=== PATIENT | male | born 1955 | race American Indian/Alaskan Native ===

== ENCOUNTER 2022-08-26 08:31 | Outpatient (CLI) | payer OTHER, SELFPAY ==
--- NOTE | 2022-08-26 08:49 | USCV_ITS ---
Migue Gill Age: 67 Gender: M : 1955 Exam Date: 08/26/2022 09:27 Ordering Phys: Fredo Moran DO Technologist: Felix Cleaning Exam Location: [facility] [place]_ Indication: ao stent survalance HISTORY: Diameter (cm) AP x Transverse x Length Velocity (cm/s) Waveform Prox Aorta: x x Mid Aorta: x x Distal Aorta: x x Right Iliac Prox: x x Left Iliac Prox: x x Stent Prox Landing x x Aneurysmal Sac Max x x Lt Lat Sac Dim Rt Lat Sac Dim Stent Dist Landing x x Right Iliac Stent x x Left Iliac Stent x x Right Renal Art Left Renal Art FINDINGS: unable to see ao clearly or get doppler signals pt was preped CONCLUSIONS Technically difficult study. Could not visualize the aorta appropriately. Recommend CTA to better evaluate the aorta Dr Jenae Barboza MD FAC (Electronically Signed) Final Date: 30 August 2022 22:53 S
== END 2022-08-26 08:32 | disposition home or self-care (01) ==
LOC: RAD 08:37
PROVIDERS: PCP Emergency Medicine Emergency Medical Services; Visit Provider Emergency Medicine Emergency Medical Services
DX: Z95.828 Presence of other vascular implants and grafts (principal); I71.9 Aortic aneurysm of unspecified site, without rupture
CPT/HCPCS: 93978

== ENCOUNTER 2022-09-21 16:15 | Outpatient (CLI) | payer OTHER, SELFPAY ==
--- NOTE | 2022-09-21 16:23 | CT_ITS ---
WS: [id number] CT ANGIOGRAPHY ABDOMEN AORTA, with and without contrast. HISTORY: AAA, SURVEILLANCE TECHNIQUE: Noncontrast CT first performed. CT angiogram is performed during IV injection. Arterial an d delayed imaging. Reformation images reviewed. All CT scans at [facility] use at least one of these dose optimization techniques: automated exposure control; mA and/or kV adjustment per patient size (includes targeted exams where dose is matched to clinical indication); or iterative reconstruct ion. CONTRAST: Omnipaque 350; 100 mL IV. DLP: 1717.58 mGy.cm COMPARISON: No similar studies. Lung bases are clear. Normal size heart. Abdominal aorta: Patient is status post endovascular graft repair. Graft begins just below the SMA wi th RIGHT common iliac artery extensions. There is a very short leg of the graft which does not extend to the LEFT common iliac artery. The graft bifurcates but there is a very short and occluded LEFT il iac extension. The graft does not extend into the LEFT iliac artery. This may be purposely short exte nsion but does not extend into the LEFT common iliac. The RIGHT common iliac artery extension of the graft is widely patent. In the main body of the graft there is a small amount of mural thrombus, curvilinear along the RIGHT graft with a maximum diameter which does not enhance measuring 5.3 mm. Both renal arteries are normal ly opacified. Celiac axis and SMA are normally opacified. KHAI is not identified and may be occluded. Good contrast opacification of the RIGHT common iliac artery. Small caliber and occluded LEFT common iliac artery. No endovascular leak is identified. Liver and gallbladder are negative. Normal size spleen with granulomata. No bile duct dilatation. Nor mal pancreas and adrenal glands. No ascites or adenopathy. Visualized GI tract is negative with mild constipation. Normal appendix. No renal obstruction. No renal mass or cortical thinning. Ventral abdo sajan wall hernia contains fat only. CT/CT angio abdomen [id number] IMPRESSION: 1. Patient is status post endovascular graft repair. 2. No abdominal aortic aneurysm. Small amount of mural thrombus along the RIGH T lateral graft measuring 5.3 mm. Graft remains widely patent. 3. RIGHT common iliac artery graft is patent. 4. There is a very short leg extending towards the LEFT common iliac artery bu t does not reach the artery in this leg of the graft is occluded. The [place] LE FT common iliac artery is occluded. There are no prior studies for comparison. This may be a short extension of the graft on purpose. 5. Normal enhancement of the kidneys. 6. No endovascular leak.
[2022-09-21 16:47] LABS: Blood Urea Nitrogen 13 mg/dL (8-23)
[2022-09-21] MEDS: iohexol 350 mg/mL 100 mL Btl IV (16:59)
== END 2022-09-21 16:16 | disposition home or self-care (01) ==
LOC: RAD 16:16
PROVIDERS: PCP Emergency Medicine Emergency Medical Services; Visit Provider Emergency Medicine Emergency Medical Services
DX: I71.40 Abdominal aortic aneurysm, without rupture, unspecified (principal)
CPT/HCPCS: 74175; 82565; 84520; Q9967